=== PATIENT | female | born 1965 ===

== ENCOUNTER 2016-09-17 12:40 | Emergency (ER) | payer MEDICAID ==
[2016-09-17 12:40] VITALS: BMI 28.9
[2016-09-17 12:46] VITALS: BP 153/85; PULSE 88; RESP 20; TEMP 97.8; O2SAT 98
--- NOTE | 2016-09-17 13:03 | ED PDOC ---
HPI: Headache Time Seen by Provider: 09/17/16 12:45 Chief Complaint (Nursing): Headache Chief Complaint (Provider): Headache History Per: Patient History/Exam Limitations: no limitations Onset/Duration Of Symptoms: Days (2-3 weeks) Current Symptoms Are (Timing): Still Present Severity: Moderate Pain Scale Rating Of: 4 Quality: "Pain" Preceeding Symptoms: None Associated Symptoms: Photophobia, Other (reports seeing "floaters") Additional Complaint(s): Pt is a 51yo female with PMHx of depression, presents to the ED for evaluation of right-sided headache, reported as "coming and going" for the past 2-3 weeks. Pt reports the pain is associated with dizziness and photophobia; she additionally states she feels tired. There was an aura (floaters) that proceeded the headache. The GARCIA is only located on the right side--worse w/ bright lights. No fever. She denies taking any medications to help with he headache. Currently her headache is a "3" on a 1-10 scale (was stronger earlier ). At present, she offers no additional medical complaints. PMD: A clinic in [place] Past Medical History Reviewed: Historical Data, Nursing Documentation, Vital Signs Vital Signs: Last Vital Signs Temp 97.8 F 09/17/16 12:42 Pulse 88 09/17/16 12:42 Resp 20 09/17/16 12:42 BP 153/85 H 09/17/16 12:42 Pulse Ox 98 09/17/16 12:42 - Medical History PMH: Depression Denies: Diabetes - Surgical History Surgical History: No Surg Hx - Family History Family History: States: Hypertension - Living Arrangements Living Arrangements: With Family - Social History Current smoker - smoking cessation education provided: No Alcohol: None Drugs: Denies - Immunization History Hx Tetanus Toxoid Vaccination: No Hx Influenza Vaccination: No Hx Pneumococcal Vaccination: No - Home Medications Home Medications: Ambulatory Orders Medication Instructions Recorded Acetaminophen [Tylenol 325mg tab] 3 tab PO Q6 PRN #60 tab 09/17/16 Citalopram [celEXA] 30 mg PO DAILY 09/17/16 Ibuprofen [Motrin] 1 tab PO Q8 PRN #30 tab 09/17/16 Loratadine [Allergy] 10 mg PO DAILY 09/17/16 QUEtiapine [SEROquel] 50 mg PO HS 09/17/16 - Allergies Allergies/Adverse Reactions: Allergies Allergy/AdvReac Type Severity Reaction Status Date / Time seasonal Allergy Mild RASH Uncoded 09/17/16 12:41 Review of Systems ROS Statement: Except As Marked, All Systems Reviewed And Found Negative Constitutional: Negative for: Fever Respiratory: Negative for: Shortness of Breath Gastrointestinal: Negative for: Vomiting, Abdominal Pain Neurological: Positive for: Weakness, Headache, Dizziness, Other (photophobia) Physical Exam - Reviewed Nursing Documentation Reviewed: Yes Vital Signs Reviewed: Yes - Physical Exam Appears: Positive for: Well, Non-toxic, Uncomfortable Head Exam: Positive for: ATRAUMATIC, NORMAL INSPECTION, NORMOCEPHALIC Skin: Positive for: Normal Color Eye Exam: Positive for: Normal appearance, EOMI, PERRL, Other (+photophobia) ENT: Positive for: Normal ENT Inspection Neck: Positive for: Normal Cardiovascular/Chest: Positive for: Regular Rate, Rhythm. Negative for: Murmur Respiratory: Positive for: Normal Breath Sounds. Negative for: Respiratory Distress Gastrointestinal/Abdominal: Positive for: Normal Exam, Bowel Sounds, Soft. Negative for: Tenderness Back: Positive for: Normal Inspection Extremity: Positive for: Normal ROM Neurologic/Psych: Positive for: Alert, construction plant operator II-XII, Oriented, Other (nonfocal neuro exam). Negative for: Motor/Sensory Deficits - Laboratory Results Result Diagrams: 09/17/16 13:10 09/17/16 13:10 - ECG O2 Sat by Pulse Oximetry: 98 (RA) Pulse Ox Interpretation: Normal Medical Decision Making Medical Decision Making: Time: 1304 Initial impression: Migraine headache Initial Plan: -- CT Head w/o contrast -- CMP -- CBC -- Urinalysis -- Will follow [facility] Migraine Headache protocol -- Reassess 2:07 PM -- Patient's headache is completely gone. She feels much better. Will d/c home. Scribe Attestation: Documented by Christine Johnson acting as a scribe for Ravi Arvizu DO. Provider Attestation: All medical record entries made by the Scribe were at my direction and personally dictated by me. I have reviewed the chart and agree that the record accurately reflects my personal performance of the history, physical exam, medical decision making, and the department course for this patient. I have also personally directed, reviewed, and agree with the discharge instructions and disposition. Disposition - Clinical Impression Clinical Impression: Migraine - Patient ED Disposition Is Patient to be Admitted: No - Disposition Disposition: Routine/Home Disposition Time: 14:08 Condition: IMPROVED Additional Instructions: Ms. Kilpatrick, thank you very much for letting us take care of you today. Return to the ER if your symptoms worsen, or if any problems. Take the medication listed below as prescribed. Follow up with you clinic physician at [place] this week for a re-evaluation. Prescriptions: Acetaminophen [Tylenol 325mg tab] 3 tab PO Q6 PRN #60 tab PRN Reason: Headache Ibuprofen [Motrin] 1 tab PO Q8 PRN #30 tab PRN Reason: Headache Instructions: Migraine Headache (ED) Forms: [facility] (Vincentian) Print Language: KINYARWANDA - POA Present On Arrival: None
[2016-09-17] MEDS ORDERED: Sodium Chloride 0.9% 1,000 ML IV SCH (13:15)
[2016-09-17 13:24] LABS: RBC URINE < 1 /hpf (0-3); URINE BILIRUBIN NEGATIVE (NEGATIVE); URINE BLOOD NEGATIVE (NEGATIVE); URINE COLOR COLORLESS (YELLOW); URINE GLUCOSE (UA) NEG (Normal); URINE KETONE NEGATIVE (NEGATIVE); URINE LEUKOCYTE ESTERASE TRACE Leu/uL (Negative); URINE PROTEIN NEGATIVE (NEGATIVE); URINE UROBILINOGEN 0.2-1.0 mg/dL (0.2-1.0); WBC URINE < 1 /hpf (0-5)
[2016-09-17 13:25] LABS: BASO % 0.8 % (0.0-2.0); EOS # 0.1 K/uL (0.0-0.7); EOS % 2.9 % (0.0-4.0); HEMATOCRIT 37.3 % (34.0-47.0); LYMPH # 1.6 K/uL (1.0-4.3); LYMPH % 35.6 % (20.0-40.0); MEAN CORPUSCULAR HEMOGLOBIN 26.7 pg (27.0-31.0); MEAN CORPUSCULAR HGB CONC 32.1 g/dL (33.0-37.0); MEAN PLATELET VOLUME 9.2 fl (7.2-11.7); MONO # 0.3 K/uL (0.0-0.8); MONO % 6.7 % (0.0-10.0); NEUT # 2.5 K/uL (1.8-7.0); NRBC % 0.1 % (0.0-0.0); RED CELL DISTRIBUTION WIDTH 13.9 % (11.5-14.5); WHITE BLOOD COUNT 4.6 K/uL (4.8-10.8)
[2016-09-17 13:33] LABS: ALB/GLOB RATIO 1.5 (1.0-2.1); ALKALINE PHOSPHATASE 84 U/L (38-126); ALT/SGPT 40 U/L (9-52); AST/SGOT 29 U/L (14-36); BILIRUBIN,TOTAL 0.4 mg/dl (0.2-1.3); BLOOD UREA NITROGEN 10 mg/dl (7-17); CALCIUM 8.7 mg/dL (8.4-10.2); CARBON DIOXIDE 25 mmol/L (22-30); CHLORIDE 106 mmol/L (98-107); GFR AFRICAN-AMERICAN > 60; GLUCOSE,RANDOM 96 mg/dL (65-105); POTASSIUM 4.3 MMOL/L (3.6-5.0); SODIUM 140 mmol/l (132-148); TOTAL PROTEIN 7.2 G/DL (6.3-8.2)
--- NOTE | 2016-09-17 13:41 | CT ---
PROCEDURE: CT HEAD WITHOUT CONTRAST. HISTORY: headache COMPARISON: None available. TECHNIQUE: Axial computed tomography images were obtained through the head/brain without intravenous contrast. Radiation dose: Total exam DLP = 857.65 mGy-cm. This CT exam was performed using one or more of the following dose reduction techniques: Automated exposure control, adjustment of the mA and/or kV according to patient size, and/or use of iterative reconstruction technique. FINDINGS: HEMORRHAGE: No intracranial hemorrhage. BRAIN: No mass effect or edema. No atrophy or chronic microvascular ischemic changes.No CT evidence of acute territorial infarct. VENTRICLES: Unremarkable. No hydrocephalus. CALVARIUM: Unremarkable. PARANASAL SINUSES: Mild mucosal thickening of both maxillary sinuses. MASTOID AIR CELLS: Unremarkable as visualized. No inflammatory changes. OTHER FINDINGS: None. IMPRESSION: No CT evidence of acute intracranial hemorrhage or acute territorial infarct. Acute infarction may be CT occult within first 24 hours. If a focal deficit persists, consider followup CT or MRI for further evaluation. Mild sinus disease.
== END 2016-09-17 14:20 | disposition home or self-care (01) ==
LOC: H.ER 12:40
DX: G43.909 Migraine, unspecified, not intractable, without status migrainosus (principal); F32.9 Major depressive disorder, single episode, unspecified; R42 Dizziness and giddiness

== ENCOUNTER 2016-09-25 11:40 | Emergency (ER) | payer MEDICAID ==
[2016-09-25 11:56] VITALS: BP 146/88; PULSE 81; RESP 18; TEMP 98.2; O2SAT 100
[2016-09-25 11:57] VITALS: BMI 23.8
--- NOTE | 2016-09-25 13:30 | ED PDOC ---
Upper Extremity Pain/Injury Time Seen by Provider: 09/25/16 12:05 Chief Complaint (Nursing): Upper Extremity Problem/Injury Chief Complaint (Provider): Right Hand Injury History Per: Patient History/Exam Limitations: no limitations Onset/Duration Of Symptoms: Days (2 days ago) Current Symptoms Are (Timing): Still Present Additional Complaint(s): Nisa Kilpatrick, a 51 year old female, presents to the ED with her and daughter, complaining of a right hand injury. The patient states that 2 days ago she was attempting to close a folding chair which closed abruptly on her right hand. She states that she has been having pain in her right hand since then. The patients family members also expressed that she has been feeling depressed over the past several days. The patient does admit to feeling depressed and the root of it, is that she fights alot with her and she has been wanting to see her mother who lives [facility]. She reports that she usually takes seroquel but is not compliant and takes it infrequently. The patient states that her last dosage was yesterday. The patient reports that she wants to live for her daughters and that is her purpose in life to make sure her daughters are safe and happy. Denies HI/SI hallucinations. Past Medical History Reviewed: Historical Data, Nursing Documentation, Vital Signs Vital Signs: Last Vital Signs Temp 98.2 F 09/25/16 11:55 Pulse 81 09/25/16 11:55 Resp 18 09/25/16 11:55 BP 146/88 09/25/16 11:55 Pulse Ox 100 09/25/16 11:55 - Medical History PMH: Depression Denies: Diabetes, Hepatitis, HIV, HTN, Hyperthyroidism, Hypothyroidism, Kidney Stones, Chronic Kidney Disease, Seizures, Sexually Transmitted Disease - Family History Family History: States: Unknown Family Hx, Hypertension - Immunization History Hx Tetanus Toxoid Vaccination: No Hx Influenza Vaccination: No Hx Pneumococcal Vaccination: No - Home Medications Home Medications: Ambulatory Orders Medication Instructions Recorded Acetaminophen [Tylenol 325mg tab] 3 tab PO Q6 PRN #60 tab 09/17/16 Citalopram [celEXA] 30 mg PO DAILY 09/17/16 Ibuprofen [Motrin] 1 tab PO Q8 PRN #30 tab 09/17/16 Loratadine [Allergy] 10 mg PO DAILY 09/17/16 QUEtiapine [SEROquel] 50 mg PO HS 09/17/16 - Allergies Allergies/Adverse Reactions: Allergies Allergy/AdvReac Type Severity Reaction Status Date / Time seasonal Allergy Mild RASH Uncoded 09/25/16 11:56 Review of Systems Musculoskeletal: Positive for: Hand Pain (Right hand pain.) Psych: Positive for: Depression. Negative for: Suicidal ideation Physical Exam - Reviewed Nursing Documentation Reviewed: Yes Vital Signs Reviewed: Yes - Physical Exam Appears: Positive for: Non-toxic, No Acute Distress Head Exam: Positive for: ATRAUMATIC, NORMOCEPHALIC Skin: Positive for: Normal Color, Warm, Dry Eye Exam: Positive for: Normal appearance, EOMI, PERRL ENT: Positive for: Normal ENT Inspection Neck: Positive for: Normal, Painless ROM, Supple Cardiovascular/Chest: Positive for: Regular Rate, Rhythm, Chest Non Tender. Negative for: Tachycardia Respiratory: Positive for: Normal Breath Sounds, Accessory Muscle Use. Negative for: Wheezing, Respiratory Distress Pulses-Radial (R): 2+ (2+ in right hand.) Gastrointestinal/Abdominal: Positive for: Normal Exam, Soft. Negative for: Tenderness Back: Positive for: Normal Inspection. Negative for: L CVA Tenderness, R CVA Tenderness Extremity: Positive for: Tenderness (Mild tenderess to dorsal surface of right hand.), Capillary Refill (Capillary refills less than 2 seconds.). Negative for : Deformity (No deformities to the right hand.), Swelling (No swelling to the right hand.) Neurologic/Psych: Positive for: Alert, Oriented, Mood/Affect (Crying but easily consolable and very cooperative.), Gait - ECG O2 Sat by Pulse Oximetry: 100 (RA) Pulse Ox Interpretation: Normal - Radiology X-Ray: Interpreted by Me (Hand x-ray) X-Ray Interpretation: No Acute Disease - Progress ED Course And Treament: Hand immobilized in volar splint applied by PA. Pt. evaluated by [employer] worker, who spoke with psychiatrist who cleared pt. for discharge and arranged outpatient f/u. Medical Decision Making Medical Decision Makin:05 Initial Impression: 51 year old female presenting with right hand pain Initial Plan: * Crisis Evaluation * RAD right hand Scribe Attestation Documented by Duyen Tim acting as a scribe for Ras Rose PA-C. Scribe Attestation All medical record entries made by the Scribe were at my direction and personally dictated by me. I have reviewed the chart and agree that the record accurately reflects my personal performance of the history, physical exam, medical decision making, and the department course for this patient. I have also personally directed, reviewed, and agree with the discharge instructions and disposition. Disposition - Clinical Impression Clinical Impression: Hand contusion, Depression - Patient ED Disposition Is Patient to be Admitted: No - Disposition Referrals: [facility] [place] [Outside] Disposition: Routine/Home Disposition Time: 13:54 Condition: STABLE Additional Instructions: FOLLOW UP AT [facility] LOC[facility] AT [address] [place] [address] Instructions: Depression (ED), Contusion in Adults (ED) Print Language: MICRONESIAN
--- NOTE | 2016-09-25 15:35 | RAD ---
PROCEDURE: Right Wrist Radiographs. HISTORY: trauma COMPARISON: None. FINDINGS: BONES: Normal. No fracture. JOINTS: Normal. No dislocation. SOFT TISSUES: Normal. OTHER FINDINGS: None. IMPRESSION: Normal right wrist radiographs.
== END 2016-09-25 14:20 | disposition home or self-care (01) ==
LOC: H.ER 11:40
DX: S60.221A Contusion of right hand, initial encounter (principal); W23.0XXA Caught, crushed, jammed, or pinched between moving objects, initial encounter; Y92.89 Other specified places as the place of occurrence of the external cause; F32.9 Major depressive disorder, single episode, unspecified

== ENCOUNTER 2016-09-26 02:23 | Emergency (ER) | payer MEDICAID ==
[2016-09-26 02:52] VITALS: BP 148/92; PULSE 84; RESP 16; TEMP 98.2; O2SAT 100; BMI 32.9
--- NOTE | 2016-09-26 03:02 | ED PDOC ---
HPI: Psych/Substance Abuse Time Seen by Provider: 09/26/16 02:27 Chief Complaint (Nursing): Psychiatric Evaluation Chief Complaint (Provider): Denies complaint - Brought by EMS History Per: Patient History/Exam Limitations: no limitations Additional Complaint(s): Pt states she was at police station and brought here by EMS after filing for a restraining order from . Pt states she wants a divroce because he is cheating on her but he will not sign the papers. Past Medical History Reviewed: Historical Data, Nursing Documentation, Vital Signs Vital Signs: Last Vital Signs Temp 98.2 F 09/26/16 02:39 Pulse 84 09/26/16 02:39 Resp 16 09/26/16 02:39 BP 148/92 H 09/26/16 02:39 Pulse Ox 100 09/26/16 02:39 - Medical History PMH: Depression Denies: Diabetes, Hepatitis, HIV, HTN, Hyperthyroidism, Hypothyroidism, Kidney Stones, Chronic Kidney Disease, Seizures, Sexually Transmitted Disease - Surgical History Surgical History: No Surg Hx - Family History Family History: States: Unknown Family Hx, Hypertension - Living Arrangements Living Arrangements: With Family - Social History Current smoker - smoking cessation education provided: No Alcohol: None Drugs: Denies - Immunization History Hx Tetanus Toxoid Vaccination: No Hx Influenza Vaccination: No Hx Pneumococcal Vaccination: No - Home Medications Home Medications: Ambulatory Orders Medication Instructions Recorded Acetaminophen [Tylenol 325mg tab] 3 tab PO Q6 PRN #60 tab 09/17/16 Citalopram [celEXA] 30 mg PO DAILY 09/17/16 Ibuprofen [Motrin] 1 tab PO Q8 PRN #30 tab 09/17/16 Loratadine [Allergy] 10 mg PO DAILY 09/17/16 QUEtiapine [SEROquel] 50 mg PO HS 09/17/16 - Allergies Allergies/Adverse Reactions: Allergies Allergy/AdvReac Type Severity Reaction Status Date / Time seasonal Allergy Mild RASH Uncoded 09/26/16 02:37 Review of Systems ROS Statement: Except As Marked, All Systems Reviewed And Found Negative Physical Exam - Reviewed Nursing Documentation Reviewed: Yes Vital Signs Reviewed: Yes - Physical Exam Appears: Positive for: Well, Non-toxic, No Acute Distress Head Exam: Positive for: ATRAUMATIC, NORMAL INSPECTION, NORMOCEPHALIC Skin: Positive for: Normal Color, Warm, DRY Eye Exam: Positive for: Normal appearance ENT: Positive for: Normal ENT Inspection Neck: Positive for: Normal, Painless ROM Cardiovascular/Chest: Positive for: Regular Rate, Rhythm Respiratory: Positive for: CNT, Normal Breath Sounds Back: Positive for: Normal Inspection Extremity: Positive for: Normal ROM Neurologic/Psych: Positive for: Alert, Oriented - ECG O2 Sat by Pulse Oximetry: 100 Pulse Ox Interpretation: Normal Medical Decision Making Medical Decision Making: crisis evaluation completed. Disposition - Clinical Impression Clinical Impression: Depression - Patient ED Disposition Is Patient to be Admitted: No - Disposition Referrals: Bonnie Godinez MD [Primary Care Provider] - Disposition: Routine/Home Disposition Time: 03:00 Condition: GOOD Instructions: Depression (ED)
== END 2016-09-26 03:15 | disposition home or self-care (01) ==
LOC: H.ER 02:23
DX: F33.9 Major depressive disorder, recurrent, unspecified (principal)

== ENCOUNTER 2016-09-27 06:39 | Observation (INO) | payer MEDICAID ==
[2016-09-27 06:40] VITALS: BMI 32.9
[2016-09-27 08:16] LABS: BASO % 0.7 % (0.0-2.0); EOS # 0.2 K/uL (0.0-0.7); EOS % 3.3 % (0.0-4.0); HEMATOCRIT 40.1 % (34.0-47.0); LYMPH # 2.8 K/uL (1.0-4.3); LYMPH % 40.9 % (20.0-40.0); MEAN CELL VOLUME 82.2 fl (81.0-99.0); MEAN CORPUSCULAR HEMOGLOBIN 27.6 pg (27.0-31.0); MEAN CORPUSCULAR HGB CONC 33.6 g/dL (33.0-37.0); MEAN PLATELET VOLUME 8.7 fl (7.2-11.7); MONO # 0.5 K/uL (0.0-0.8); MONO % 7.9 % (0.0-10.0); NEUT # 3.2 K/uL (1.8-7.0); NEUT % 47.2 % (50.0-75.0); NRBC % 0.3 % (0.0-0.0); WHITE BLOOD COUNT 6.9 K/uL (4.8-10.8)
--- NOTE | 2016-09-27 08:22 | PCM.RRTMUL ---
MEMBER[employer]IP [employer]IC[employer] Nurse Assessment - Vital Signs Blood Pressure:: 110/85 Pulse Rate:: 75 Respiratory Rate:: 16 Temperature:: 98.7 F I.Reason for [employer]BERSHIP [employer]ICITOR - A) Acute Change in Patient: Subjective: MEMBERSHIP SOLICITOR called for whole body contractions - B) Neurological Status (Select all that apply): Responsive (to painful stimuli) - C) Respiratory Oxygen Delivery Method: Non Rebreather @% (15L) - Head Head Exam: ATRAUMATIC - Neurological Exam Neurological Exam: Awake Additional exam: responsive to painful stimuli Plan - B. Assessment of Findings&Treatment Plan 51 yr old F with PMHx of depression, MEMBERSHIP SOLICITOR called in CT department for whole body contractions which lasted a few seconds, vital signs were stable, no seizure like activity, patient responsive to painful stimuli, no medications given during [employer]SHIP [employer]IC[employer], pt stable on supplemental O2 15L via nonrebreather mask, transferred back to ER for further evaluation.
--- NOTE | 2016-09-27 08:24 | CT ---
PROCEDURE: CT HEAD WITHOUT CONTRAST. HISTORY: code stroke COMPARISON: 09/17/2016 TECHNIQUE: Axial computed tomography images were obtained through the head/brain without intravenous contrast. Radiation dose: Total exam DLP = 1245.89 mGy-cm. This CT exam was performed using one or more of the following dose reduction techniques: Automated exposure control, adjustment of the mA and/or kV according to patient size, and/or use of iterative reconstruction technique. FINDINGS: HEMORRHAGE: None BRAIN: John-white matter differentiation is preserved. There is no mass, mass effect or abnormal extra-axial fluid collection. VENTRICLES: The ventricles are normal in size, shape and configuration. CALVARIUM: There is no calvarial fracture or extracranial soft tissue swelling. PARANASAL SINUSES: Predominantly clear. MASTOID AIR CELLS: Predominantly clear. OTHER FINDINGS: None. IMPRESSION: No acute intracranial abnormality. If there is a persistent focal neurologic deficit and an ongoing clinical concern for acute infarction, an MRI of the brain without intravenous contrast would be a more sensitive modality for evaluation of hyperacute/acute ischemic infarction. Findings discussed with Dr Hanny Dsouza in the ER on 09/27/2016 at 8:20 a.m.
--- NOTE | 2016-09-27 08:25 | ED PDOC ---
HPI:STROKE - Historian Historian: Family (daughter) - Chief Complaint Chief Complaint: Weakness, Numbness - Onset Date: 09/27/16 Onset: This morning - Notes: Notes:: Nisa Kilpatrick is a 51 year old female, with a previous medical history of depression and migraines, who presents to the ED accompanied by her daughter with complaints of right sided weakness and numbness this morning when she woke up. Daughter reports patient was last seen at baseline before going to sleep last night at 24:00. Patient denies any alcohol ingestion and reports to taking 4 ibuprofen and her antidepressants. Daughter reports patient has been frequently crying for the past couple of weeks from hearing bad news. PMD: none provided NIHSS Stroke Scale - Date/Time Evaluation Performed Date Performed: 09/27/16 Time Performed: 07:45 When Was NIHSS Performed: Code Stroke - How Severe is the Stroke Level of Consciousness: 1=Drowsy LOC to Questions: 0=Both comments correct LOC to commands: 0=Obeys both correctly Best Gaze: 0=Normal Visual: 0=No visual loss Facial: 0=Normal Motor Arm - Left: 2=Falls before 10 sec Motor Arm - Right: 2=Falls before 10 sec Motor Leg - Left: 2=Falls before 5 sec Motor Leg - Right: 3=No effort against gravity (falls immediately) Limb Ataxia: 0=Absent Sensory: 0=Normal Best Language: 0=No aphasia Dysarthia: 0=Normal articulation Extinction & Inattention (Neglect): 0=Normal, no object Score: 10 NIHSS Stroke Scale 2 - Date/Time Evaluation Performed Date Performed: 09/27/16 Time Performed: 08:40 When Was NIHSS Performed: Re-evaluation - How Severe is the Stroke Level of Consciousness: 0=Alert LOC to Questions: 0=Both comments correct LOC to commands: 0=Obeys both correctly Best Gaze: 0=Normal Visual: 0=No visual loss Facial: 0=Normal Motor Arm - Left: 0=No drift Motor Arm - Right: 0=No drift Motor Leg - Left: 0=No drift Motor Leg - Right: 0=No drift Limb Ataxia: 0=Absent Sensory: 0=Normal Best Language: 0=No aphasia Dysarthia: 0=Normal articulation Extinction & Inattention (Neglect): 0=Normal, no object Score: 0 Past Medical History Reviewed: Historical Data, Nursing Documentation, Vital Signs Vital Signs: Last Vital Signs Temp 98.7 F 09/27/16 06:45 Pulse 75 09/27/16 06:45 Resp 16 09/27/16 06:45 BP 110/85 09/27/16 06:45 Pulse Ox 100 09/27/16 06:45 - Medical History PMH: Depression, Migraine Denies: Diabetes, Hepatitis, HIV, HTN, Hyperthyroidism, Hypothyroidism, Kidney Stones, Chronic Kidney Disease, Seizures, Sexually Transmitted Disease - Family History Family History: States: Unknown Family Hx, Hypertension - Immunization History Hx Tetanus Toxoid Vaccination: No Hx Influenza Vaccination: No Hx Pneumococcal Vaccination: No - Home Medications Home Medications: Ambulatory Orders Medication Instructions Recorded Acetaminophen [Tylenol 325mg tab] 3 tab PO Q6 PRN #60 tab 09/17/16 Citalopram [celEXA] 30 mg PO DAILY 09/17/16 Ibuprofen [Motrin] 1 tab PO Q8 PRN #30 tab 09/17/16 Loratadine [Allergy] 10 mg PO DAILY 09/17/16 QUEtiapine [SEROquel] 50 mg PO HS 09/17/16 - Allergies Allergies/Adverse Reactions: Allergies Allergy/AdvReac Type Severity Reaction Status Date / Time seasonal Allergy Mild RASH Uncoded 09/26/16 02:37 Review of Systems ROS Statement: Except As Marked, All Systems Reviewed And Found Negative Neurological: Positive for: Weakness, Numbness Physical Exam - Reviewed Nursing Documentation Reviewed: Yes Vital Signs Reviewed: Yes - Laboratory Results Result Diagrams: 09/27/16 08:05 09/27/16 08:05 - ECG O2 Sat by Pulse Oximetry: 100 (RA) Pulse Ox Interpretation: Normal - Progress ED Course And Treament: 07:44 Code stroke called 07:50 Rapid Response Team called into CT room for whole body contraction. No seizure activity noted, patient responsive to painful stimuli. Patient observed and vital signs stable. 08:20 Radiology called for reading. 08:40 Upon Reevaluation patient appears alert, oriented x 3 and able to move all extremities. Patient denies any suicidal or homicidal ideations. 09:[address] Chavarria who is diagnosing the patient with transient global amnesia. 09:[address] Dawson, patient will be placed in Obs tele. - Critical Care Total Time (In Min): 30 Medical Decision Making Medical Decision Making: Initial Plan: * blood type and screen * CT head w/o contrast * EKG * labs * acetaminophen * alcohol serum * urine drug sceen * HCG qualitative * hemoglobin A1C * Troponin I * partial thromboplastin time * prothrombin time * CXR * salicylate * radiation monitor cont * accu-check * nursing swallow screen * vital signs Q15 min * reevaluation 08:21 CT Head w/o contrast FINDINGS: HEMORRHAGE: None BRAIN: John-white matter differentiation is preserved. There is no mass, mass effect or abnormal extra-axial fluid collection. VENTRICLES: The ventricles are normal in size, shape and configuration. CALVARIUM: There is no calvarial fracture or extracranial soft tissue swelling. PARANASAL SINUSES: Predominantly clear. MASTOID AIR CELLS: Predominantly clear. OTHER FINDINGS: None. IMPRESSION: No acute intracranial abnormality. If there is a persistent focal neurologic deficit and an ongoing clinical concern for acute infarction, an MRI of the brain without intravenous contrast would be a more sensitive modality for evaluation of hyperacute/acute ischemic infarction. Findings discussed with Dr Hanny Dsouza in the ER on 09/27/2016 at 8:20 a.m. Scribe Attestation: Documented by Hanny Dawkins, acting as a scribe for Hanny Dsouza MD. Provider Scribe Attestation: All medical record entries made by the Scribe were at my direction and personally dictated by me. I have reviewed the chart and agree that the record accurately reflects my personal performance of the history, physical exam, medical decision making, and the department course for this patient. I have also personally directed, reviewed, and agree with the discharge instructions and disposition.
[2016-09-27 08:34] LABS: ALB/GLOB RATIO 1.4 (1.0-2.1); ALCOHOL SERUM < 10 mg/dl (0-10); ALKALINE PHOSPHATASE 85 U/L (38-126); ALT/SGPT 40 U/L (9-52); AST/SGOT 29 U/L (14-36); BILIRUBIN,TOTAL 0.6 mg/dl (0.2-1.3); BLOOD UREA NITROGEN 11 mg/dl (7-17); CALCIUM 8.9 mg/dL (8.4-10.2); CARBON DIOXIDE 23 mmol/L (22-30); CHLORIDE 105 mmol/L (98-107); CHOLESTEROL 213 mg/dL (0-199); GFR AFRICAN-AMERICAN > 60; GLUCOSE,RANDOM 95 mg/dL (65-105); POTASSIUM 3.6 MMOL/L (3.6-5.0); SODIUM 141 mmol/l (132-148)
--- NOTE | 2016-09-27 11:26 | RAD ---
HISTORY: CVA COMPARISON: Comparison is made to 02/04/2016 FINDINGS: LUNGS: No evidence of new infiltrate or consolidation in the lungs. Stable 7 millimeter nodule at the left lower lung. PLEURA: No significant pleural effusion identified, no pneumothorax apparent. CARDIOVASCULAR: Normal. OSSEOUS STRUCTURES: No significant abnormalities. VISUALIZED UPPER ABDOMEN: Normal. OTHER FINDINGS: None. IMPRESSION: No evidence of acute pulmonary disease or significant interval change since the previous exam.
--- NOTE | 2016-09-27 12:43 | PCM.RRTMUL ---
BLOCK ENGRAVER Nurse Assessment - Situation Room Number:: 404-1 BLOCK ENGRAVER Reason for Call: Possible Stroke BLOCK ENGRAVER Called By: RN I.Reason for BLOCK ENGRAVER - A) Acute Change in Patient: (Select all that apply): Staff member or family is worried about patient - A) Initial Vital Signs: Blood Pressure: 167/100 Pulse Rate: 87 Respiratory Rate: 20 Temperature: 98.7 F - B) Neurological Status (Select all that apply): Alert, Responsive, Oriented, Verbal, Follows Commands Other (Please specify): Tearful/crying - C) Respiratory Oxygen Delivery Method: Room Air - Constitutional Appears: Non-toxic, Other (tearful) - Head Head Exam: ATRAUMATIC, NORMAL INSPECTION, NORMOCEPHALIC - Eyes Eye Exam: Normal appearance - Respiratory Exam Respiratory Exam: Clear to Ausculation Bilateral, NORMAL BREATHING PATTERN - Cardiovascular Exam Cardiovascular Exam: REGULAR RHYTHM, RRR, +S1, +S2 - GI/Abdominal Exam GI & Abdominal Exam: Soft, Normal Bowel Sounds. absent: Tenderness - Neurological Exam Neurological Exam: Alert, Awake, Motor Sensory Deficit - Extremities Exam Extremities Exam: Normal Inspection. absent: Calf Tenderness, Pedal Edema Plan - B. Assessment of Findings&Treatment Plan BLOCK ENGRAVER called for possible stroke S: 51 year old female with PMHx of depression (exacerbated by recent divorce), migraines admitted to hospital this AM due to right sided weakness/numbness/ tingling. Patient was CODE STROKE this morning, CT head negative for acute changes, ASA 325mg given, patient had "body contractions" during CT of head, BLOCK ENGRAVER was called at that time as well. Patient was transferred to [facility], in stable condition with resolvement of neuro symptoms. Approx 1 hour of being transferred to , patient began with left sided weakness/numbness/tingling throughout face, upper and lower extremities. Patient also complains of chest pressure. Patient is very tearful and emotionally labile. O: As above, BP elevated A/P: 51 year old female with PMHx of depression (exacerbated by recent divorce) , migraines admitted to tele-obs due to stroke-like symptoms this AM which had resolved and were on contralateral side of current symptoms. -CODE STROKE called -EKG -MRI Brain STAT -ASA given in ED -Troponin q8h x 2 -Admitting Attending and Neurologist notified and aware NIHSS Stroke Scale - Date/Time Evaluation Performed Date Performed: 09/27/16 Time Performed: 12:00 When Was NIHSS Performed: Code Stroke - How Severe is the Stroke Level of Consciousness: 0=Alert LOC to Questions: 0=Both comments correct LOC to commands: 0=Obeys both correctly Best Gaze: 0=Normal Visual: 0=No visual loss Facial: 1=Minor asymmetry Motor Arm - Left: 0=No drift Motor Arm - Right: 0=No drift Motor Leg - Left: 3=No effort against gravity (falls immediately) Motor Leg - Right: 0=No drift Limb Ataxia: 0=Absent Sensory: 1=Mild to moderate loss Best Language: 0=No aphasia Dysarthia: 0=Normal articulation Extinction & Inattention (Neglect): 0=Normal, no object Score: 5
--- NOTE | 2016-09-27 12:57 | MRI ---
PROCEDURE: MRI of the brain without contrast HISTORY: left facial droop, left sided weakness COMPARISON: Comparison is made to the previous CT of the head dated 09/27/2016 TECHNIQUE: Axial diffusion, axial FLAIR T2 and axial GRE images of the brain were obtained. FINDINGS: No evidence of acute or subacute infarct. No evidence of diffusion restriction in the brain. No evidence of mass lesion mass effect or midline shift. The ventricles and sulci are normal in size and shape for the patient's age. No evidence of intracranial collection. The visualized portion of the sinuses and mastoid and orbits are grossly unremarkable. IMPRESSION: No evidence of acute or subacute infarct.
--- NOTE | 2016-09-27 13:39 | CARD ---
APPROVED REPORT EKG Measurement Heart [id number] <Conclusion> Normal sinus rhythm Normal ECG
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
--- NOTE | 2016-09-27 15:48 | CON ---
DATE: 09/27/2016 CHIEF COMPLAINT: Transient memory loss as well as right-sided weakness and numbness. HISTORY OF PRESENT ILLNESS: This is a 51-year-old woman with past medical history of depression and previous suicide attempt, who came to the hospital for right-sided weakness and was concerned. She w as going through a divorce with her and currently has a restraining order and a court date se t. The daughters are present. She denied any suicidal attempt, but has been flat affect and very an xious. Her transient paresthesias as weakness is likely secondary to her underlying anxiety and acut e depression. 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 No bowel or bladder incontinence. Her MRI of the brain was unremarkable. Psychiatry has se en the patient and recommend and said that she has major depression recur moderate and adjustment dis order with anxiety and recommended starting her on Seroquel 75 mg at bedtime, Celexa 30 mg daily and Ativan 0.5 mg p.r.n. for anxiety. Currently, she is eating her food without any difficulties. I hav e placed her on gabapentin 300 mg p.o. at bedtime for neuropathic relief as will help her anxiety. C urrently, no focal neurological deficits at this time. PAST MEDICAL HISTORY: Depression. SOCIAL HISTORY: No illicit drug use, smoking, or EtOH abuse. ALLERGIES: Seasonal. FAMILY HISTORY: Noncontributory. REVIEW OF SYSTEMS: A 14-point review of systems is negative except for the HPI. MEDICATIONS: Reviewed via nurse's reconciliation sheet. PHYSICAL EXAMINATION: VITAL SIGNS: Temperature 97.7, pulse rate is 67, blood pressure 117/83, respiratory rate 18, oxygen saturation 100% via room air. GENERAL: The patient is sitting up in bed in no acute distress. HEENT: Atraumatic, normocephalic. PERRLA. Extraocular muscles are intact. NECK: Supple, no JVD, no adenopathy noted. LUNGS: Clear to auscultation. No adventitious sounds. HEART: S1, S2, normal rate and rhythm. No murmurs, rubs, or gallops. ABDOMEN: Soft, nontender, nondistended. Bowel sounds are present. EXTREMITIES: No clubbing, no cyanosis. Peripheral pulses 2+ felt bilaterally. NEUROLOGIC: The patient is alert, oriented to person, place, month and year. Speech is fluent, with out any errors. Cranial nerves II-XII are intact. MOTOR: Moves all extremities equally. No pronator drift seen. SENSORY: Light touch, pinprick, proprioception and vibration intact. DTRs are 2+ throughout. COORDINATION: [id number] intact. GAIT: Deferred for now. She is anxious and as well as depressed affect. LABORATORY DATA: Sodium is 141, potassium 3.6, chloride 105, carbon dioxide 23, BUN of 11, creatinin e 0.7, random glucose 95. ASSESSMENT AND PLAN: My impression is that this is likely an acute depressive state moderate along w ith superimposed underlying anxiety, adjustment disorder and I agree with psychiatry's recommendation s to continue to place her on Celexa as well as Seroquel. Seroquel dosage of 50 mg p.o. at bedtime a nd Celexa 30 mg p.o. daily. In addition, will keep her on gabapentin 300 mg p.o. at bedtime, will up her paresthesias as well as anxiety. I recommended her to be on aspirin 81 mg daily as well as Lipi tor 40 mg daily for stroke prevention. MRI of the brain showed no acute intracranial abnormality. S he is clinically stable from my standpoint. Can further defer her clearance from psychiatry. Kojo chu sign off. Evelio Chavarria MD cc: [phone] TT: 09/27/2016 15:47:23 Confirmation # [id number] Dictation # [id number] kwesi
[2016-09-28 06:47] LABS: BASO % 0.6 % (0.0-2.0); EOS # 0.2 K/uL (0.0-0.7); EOS % 3.9 % (0.0-4.0); HEMATOCRIT 38.3 % (34.0-47.0); LYMPH # 2.2 K/uL (1.0-4.3); LYMPH % 42.6 % (20.0-40.0); MEAN CORPUSCULAR HEMOGLOBIN 26.8 pg (27.0-31.0); MEAN CORPUSCULAR HGB CONC 32.3 g/dL (33.0-37.0); MEAN PLATELET VOLUME 8.9 fl (7.2-11.7); MONO # 0.3 K/uL (0.0-0.8); MONO % 6.1 % (0.0-10.0); NEUT # 2.4 K/uL (1.8-7.0); NEUT % 46.8 % (50.0-75.0); NRBC % 0.1 % (0.0-0.0); RED CELL DISTRIBUTION WIDTH 13.9 % (11.5-14.5); WHITE BLOOD COUNT 5.1 K/uL (4.8-10.8)
[2016-09-28 07:17] LABS: ALB/GLOB RATIO 1.4 (1.0-2.1); ALKALINE PHOSPHATASE 65 U/L (38-126); ALT/SGPT 32 U/L (9-52); AST/SGOT 26 U/L (14-36); BILIRUBIN,TOTAL 0.5 mg/dl (0.2-1.3); BLOOD UREA NITROGEN 15 mg/dl (7-17); CALCIUM 8.3 mg/dL (8.4-10.2); CARBON DIOXIDE 24 mmol/L (22-30); CHLORIDE 106 mmol/L (98-107); GFR AFRICAN-AMERICAN > 60; GLUCOSE,RANDOM 89 mg/dL (65-105); POTASSIUM 3.8 MMOL/L (3.6-5.0); SODIUM 139 mmol/l (132-148); TOTAL PROTEIN 6.7 G/DL (6.3-8.2)
[2016-09-28 07:45] LABS: THYROID STIMULATING HORMONE 1.17 mIU/ML (0.46-4.68)
--- NOTE | 2016-09-28 12:33 | CP.PCM.HP ---
History of Present Illness - History of Present Illness History of Present Illness: 51 year old female with PMHx of depression (exacerbated by recent divorce), migraines admitted to hospital due to right sided weakness/numbness/tingling. Patient was code stroke in ED, CT head negative for acute changes, ASA 325mg given, patient had "body contractions" during CT of head, SUPERINTENDENT FACTORY was called at that time as well, patient was responsive to painful stimuli (sternal rub). Patient was transferred to telemetry, in stable condition with resolvement of neuro symptoms. Patient was very tearful and emotionally labile. Approx 1 hour of being transferred to , patient began with left sided weakness/numbness/ tingling throughout face, upper and lower extremities. Patient also complained of chest pressure. Code stroke called again, patient had MRI stat completed, which was also negative for acute changes. Patient was seen and evaluated this am with attending. Patient states she feels okay though continues to complain of chest pain/tenderness/swelling of sternum. No sob, palpitations, chest pressure, back pain, headache, palpitations. Neuro/Psych evaluated patient. Present on Admission - Present on Admission Any Indicators Present on Admission: No Review of Systems - Review of Systems All systems: reviewed and no additional remarkable complaints except (mentioned in HPI) Past Patient History - Past Medical History & Family History Past Medical History?: Yes - Past Social History Smoking Status: Never Smoked - CARDIAC Hx Hypertension: No - PULMONARY Hx Tuberculosis: No - NEUROLOGICAL Hx Neurological Disorder: Yes - HEENT Hx HEENT Problems: No - RENAL Hx Chronic Kidney Disease: No - ENDOCRINE/METABOLIC Hx Hyperthyroidism: No Hx Hypothyroidism: No - HEMATOLOGICAL/ONCOLOGICAL Hx Human Immunodeficiency Virus (HIV): No - INTEGUMENTARY Hx Dermatological Problems: No - MUSCULOSKELETAL/RHEUMATOLOGICAL Hx Musculoskeletal Disorders: No Hx Falls: No - GASTROINTESTINAL Hx Gastrointestinal Disorders: No - GENITOURINARY/GYNECOLOGICAL Hx Sexually Transmitted Disorders: No - PSYCHIATRIC Hx Psychophysiologic Disorder: Yes - SURGICAL HISTORY Hx Surgeries: No - ANESTHESIA Hx Anesthesia: No Meds Home Medications: Home Medication List Medication Instructions Recorded Confirmed Type Atorvastatin [Lipitor] 40 mg PO DAILY #14 tab 09/28/16 Rx Gabapentin [Neurontin] 300 mg PO HS #30 cap 09/28/16 Rx Allergies/Adverse Reactions: Allergies Allergy/AdvReac Type Severity Reaction Status Date / Time seasonal Allergy Mild RASH Uncoded 09/26/16 02:37 Physical Exam - Constitutional Appears: Well, Non-toxic, No Acute Distress - Head Exam Head Exam: ATRAUMATIC, NORMAL INSPECTION, NORMOCEPHALIC - Eye Exam Eye Exam: Normal appearance - Neck Exam Neck exam: Positive for: Normal Inspection - Respiratory Exam Respiratory Exam: Clear to Auscultation Bilateral, NORMAL BREATHING PATTERN - Cardiovascular Exam Cardiovascular Exam: REGULAR RHYTHM, RRR, +S1, +S2 Additional comments: chest tenderness to palpation/touch with minimal swelling and no bruising of sternum - GI/Abdominal Exam GI & Abdominal Exam: Normal Bowel Sounds, Soft. absent: Tenderness - Extremities Exam Extremities exam: Positive for: normal inspection - Back Exam Back exam: NORMAL INSPECTION - Neurological Exam Neurological exam: Alert, CN II-XII Intact, Oriented x3 - Psychiatric Exam Psychiatric exam: Normal Affect, Normal Mood - Skin Skin Exam: Dry, Intact, Normal Color, Warm Results - Vital Signs Recent Vital Signs: Last Vital Signs Temp 97.9 F 09/28/16 08:00 Pulse 69 09/28/16 09:00 Resp 18 09/28/16 08:00 BP 121/86 09/28/16 08:00 Pulse Ox 100 09/28/16 08:00 - Labs Result Diagrams: 09/28/16 05:45 09/28/16 05:45 Labs: Laboratory Results - last 24 hr 09/27/16 09/27/16 09/28/16 15:43 21:18 05:45 WBC 5.1 RBC 4.61 Hgb 12.4 Hct 38.3 MCV 83.0 MCH 26.8 L MCHC 32.3 L RDW 13.9 Plt Count 236 MPV 8.9 Neut % (Auto) 46.8 L Lymph % (Auto) 42.6 H [place] % (Auto) 6.1 Eos % (Auto) 3.9 Baso % (Auto) 0.6 Neut # 2.4 Lymph # 2.2 [place] # 0.3 Eos # 0.2 Baso # 0.0 Sodium Potassium Chloride Carbon Dioxide Anion Gap BUN Creatinine Est GFR ( Amer) Est GFR (Non-Af Amer) Random Glucose Calcium Total Bilirubin AST ALT Alkaline Phosphatase Troponin I < 0.0120 < 0.0120 Total Protein Albumin Globulin Albumin/Globulin Ratio TSH 3rd Generation 09/28/16 05:45 WBC RBC Hgb Hct MCV MCH MCHC RDW Plt Count MPV Neut % (Auto) Lymph % (Auto) [place] % (Auto) Eos % (Auto) Baso % (Auto) Neut # Lymph # [place] # Eos # Baso # Sodium 139 Potassium 3.8 Chloride 106 Carbon Dioxide 24 Anion Gap 13 BUN 15 Creatinine 0.7 Est GFR ( Amer) > 60 Est GFR (Non-Af Amer) > 60 Random Glucose 89 Calcium 8.3 L Total Bilirubin 0.5 AST 26 ALT 32 Alkaline Phosphatase 65 Troponin I Total Protein 6.7 Albumin 3.8 Globulin 2.8 Albumin/Globulin Ratio 1.4 TSH 3rd Generation 1.17 Assessment & Plan (1) Paresthesia Assessment and Plan: Resolved Yesterday with contralateral findings during each episode Neuro evaluated, appreciate recommendations c/w Gabapentin Reviewed CT head and MRI of brain - unremarkable Status: Acute (2) Anxiety Assessment and Plan: Psych evaluated appreciate recommendations Appears stable at this time Status: Acute (3) Depression Assessment and Plan: Psych evaluated appreciate recommendations Appears stable at this time Status: Acute (4) Pain of sternum Assessment and Plan: Trop x 3 negative Not chest presssure or SOB related EKG reviewed no telemetry events noted likely 2ndary to sternal rub CXR ordered Status: Acute
--- NOTE | 2016-09-28 12:53 | RAD ---
HISTORY: sternal pain/swelling COMPARISON: Chest x-ray performed 09/27/16 TECHNIQUE: Chest PA and lateral FINDINGS: LUNGS: No focal consolidation. Scattered probable calcified granulomas. Please note that chest x-ray has limited sensitivity for the detection of pulmonary masses. PLEURA: No significant pleural effusion identified. No definite pneumothorax . CARDIOVASCULAR: The cardiomediastinal silhouette appears within normal limits of size. OSSEOUS STRUCTURES: Degenerative changes. Question possibility of sclerotic focus involving lower thoracic spine versus superimposed granuloma. VISUALIZED UPPER ABDOMEN: Unremarkable. OTHER FINDINGS: None. IMPRESSION: No focal consolidation, significant pleural effusion, or definite pneumothorax identified.
--- NOTE | 2016-09-28 15:19 | CT ---
CT chest without IV contrast Indication: Sternal pain/swelling Technique: Contiguous axial images were obtained through the chest without intravenous contrast enhancement. Sagittal and coronal reconstructions were generated and reviewed. This CT exam was performed using 1 or more of the falling dose reduction techniques: Automated exposure control, adjustment of the MAA and/or kV according to patient size, and/or use of iterative reconstruction technique. Radiation dose (DLP): 601.92 MGy-cm. Comparison: Chest x-ray performed 09/28/16 Findings: Visualized portions of the inferior thyroid gland appear unremarkable. The unenhanced mediastinal and hilar vascular structures appear grossly unremarkable. The heart appears within normal limits of size. Probable small calcified left hilar lymph nodes. Minimal atelectasis at the lingula. No focal consolidation. No pleural effusion. No pneumothorax. Numerous scattered calcified granulomas measuring up to 8 mm in the left lower lobe. No suspicious pulmonary nodules measuring greater than 5 mm. No subcutaneous fluid collections or soft tissue mass is identified, particularly in the region of the sternum. Limited visualization of the noncontrast upper abdomen appears grossly unremarkable. L1 6 mm sclerotic focus, possibly bone island. Impression: Evidence of prior granulomatous infection. Minimal atelectasis, lingula. Additional incidental findings as above.
--- NOTE | 2016-09-28 15:31 | CARD ---
APPROVED REPORT EKG Measurement Heart [id number] <Conclusion> Normal sinus rhythm Normal ECG
[2016-09-28 15:43] VITALS: BP 122/80; PULSE 94; RESP 20; TEMP 98.6; O2SAT 98
== END 2016-09-28 15:45 | disposition home or self-care (01) ==
LOC: H.ER 06:39 → H.ERHOLD 09:32 → H.TEL 10:53
PROVIDERS: ADMIT Internal Medicine; ATTEND Internal Medicine
DX: R20.9 Unspecified disturbances of skin sensation (principal); F33.1 Major depressive disorder, recurrent, moderate; F43.22 Adjustment disorder with anxiety; R07.89 Other chest pain; G43.909 Migraine, unspecified, not intractable, without status migrainosus

== ENCOUNTER 2016-10-05 11:22 | Inpatient (IN) | payer MEDICAID ==
[2016-10-05 11:23] VITALS: BMI 32.9
--- NOTE | 2016-10-05 13:28 | ED PDOC ---
HPI: Psych/Substance Abuse Time Seen by Provider: 10/05/16 11:35 Chief Complaint (Nursing): Psychiatric Evaluation History Per: Patient Additional Complaint(s): Pt. states today police picked her up from her house but is uncertain why. Pt. is speculating that it is because of her with whom she is with. States that her is refusing to get a divorce from her. Denies SI, HI, hallucinations. As per EMS pt. was found walking around her neighborhood barefooted and talking to herself. Pt. admitted to them that she has not been taking her psych medicaitons. Past Medical History Reviewed: Historical Data, Nursing Documentation, Vital Signs Vital Signs: Last Vital Signs Temp 98.3 F 10/05/16 11:23 Pulse 91 H 10/05/16 11:23 Resp 16 10/05/16 11:23 BP 150/107 H 10/05/16 11:23 Pulse Ox 100 10/05/16 11:23 - Medical History PMH: Depression, Migraine Denies: Diabetes, Hepatitis, HIV, HTN, Hyperthyroidism, Hypothyroidism, Kidney Stones, Chronic Kidney Disease, Seizures, Sexually Transmitted Disease - Family History Family History: States: Unknown Family Hx, Hypertension - Immunization History Hx Tetanus Toxoid Vaccination: No Hx Influenza Vaccination: No Hx Pneumococcal Vaccination: No - Home Medications Home Medications: Ambulatory Orders Medication Instructions Recorded Ibuprofen [Motrin Tab] 1 tab PO Q8 PRN #30 tab 09/17/16 QUEtiapine [SEROquel] 75 mg PO HS 09/17/16 Atorvastatin [Lipitor] 40 mg PO DAILY #14 tab 09/28/16 Gabapentin [Neurontin] 300 mg PO HS #30 cap 09/28/16 Aspirin [Ecotrin] 325 mg PO DAILY 10/05/16 Citalopram Hydrobromide [Celexa] 10 mg PO DAILY 10/05/16 Cyanocobalamin [Vitamin B12 1000 1 tab PO DAILY 10/05/16 mcg Tab] Glucosa Linder 2Kcl/Chondroitin Linder 1 cap PO DAILY 10/05/16 [Glucosamine & Chondroitin Cap] [place]-3 Fatty Acids [[place]-3] 1,000 mg PO DAILY 10/05/16 Turmeric Root Extract [Turmeric] 500 mg PO DAILY 10/05/16 - Allergies Allergies/Adverse Reactions: Allergies Allergy/AdvReac Type Severity Reaction Status Date / Time seasonal Allergy Mild RASH Uncoded 09/26/16 02:37 Review of Systems ROS Statement: Except As Marked, All Systems Reviewed And Found Negative Physical Exam - Reviewed Nursing Documentation Reviewed: Yes Vital Signs Reviewed: Yes - Physical Exam Appears: Positive for: Well, Non-toxic, No Acute Distress Head Exam: Positive for: ATRAUMATIC, NORMAL INSPECTION, NORMOCEPHALIC Skin: Positive for: Normal Color, Warm. Negative for: Rash Eye Exam: Positive for: EOMI, Normal appearance, PERRL ENT: Positive for: Normal ENT Inspection Neck: Positive for: Normal, Painless ROM Cardiovascular/Chest: Positive for: Regular Rate, Rhythm Respiratory: Positive for: CNT, Normal Breath Sounds Gastrointestinal/Abdominal: Positive for: Normal Exam, Bowel Sounds, Soft. Negative for: Tenderness Back: Positive for: Normal Inspection Extremity: Positive for: Normal ROM Neurologic/Psych: Positive for: Alert, Oriented, Mood/Affect (pt. goes off on tangents but is easily directable; calm and cooperative) - Laboratory Results Result Diagrams: 10/05/16 13:30 10/05/16 13:30 - ECG ECG: Positive for: Interpreted By Me ECG Rhythm: Positive for: Sinus Rhythm. Negative for: ST/T Changes Rate: 81 O2 Sat by Pulse Oximetry: 100 - Radiology X-Ray: Interpreted by Me (CXR) X-Ray Interpretation: No Acute Disease - Progress ED Course And Treament: Labs ordered. Pt. placed on 1:1. 1420 Pt. began c/o mid-sternal chest pain which lasted for < 1 minute. Pt. states she's been getting chest pain intermittently for the past week. Repeat BP: 129/85, POX: 99% on RA, RR: 18 Pt. evaluated by crisis who spoke with Dr. Ramos and arrangements made for admission. Disposition - Clinical Impression Clinical Impression: Major depressive disorder - Patient ED Disposition Is Patient to be Admitted: Yes - Disposition Disposition Time: 17:59 Condition: STABLE
[2016-10-05 13:44] LABS: BASO # 0.1 K/uL (0.0-0.2); BASO % 0.9 % (0.0-2.0); EOS # 0.1 K/uL (0.0-0.7); EOS % 1.1 % (0.0-4.0); HEMOGLOBIN 12.6 g/dL (12.0-16.0); LYMPH # 1.4 K/uL (1.0-4.3); LYMPH % 24.3 % (20.0-40.0); MEAN CELL VOLUME 82.6 fl (81.0-99.0); MEAN CORPUSCULAR HEMOGLOBIN 27.2 pg (27.0-31.0); MEAN CORPUSCULAR HGB CONC 32.9 g/dL (33.0-37.0); MEAN PLATELET VOLUME 8.9 fl (7.2-11.7); MONO # 0.4 K/uL (0.0-0.8); NEUT % 66.7 % (50.0-75.0); NRBC % 0.1 % (0.0-0.0); RBC 4.64 Mil/uL (3.80-5.20); RED CELL DISTRIBUTION WIDTH 13.9 % (11.5-14.5)
[2016-10-05 13:49] LABS: SQUAMOUS EPITHIAL < 1 /hpf (0-5); URINE BILIRUBIN NEGATIVE (NEGATIVE); URINE BLOOD SMALL (NEGATIVE); URINE CLARITY CLEAR (Clear); URINE COLOR COLORLESS (YELLOW); URINE GLUCOSE (UA) NEG (Normal); URINE LEUKOCYTE ESTERASE NEG Leu/uL (Negative); URINE NITRATE NEGATIVE (NEGATIVE); URINE PROTEIN NEGATIVE (NEGATIVE); URINE UROBILINOGEN 0.2-1.0 mg/dL (0.2-1.0)
[2016-10-05 13:56] LABS: ALB/GLOB RATIO 1.4 (1.0-2.1); ALBUMIN 4.7 g/dL (3.5-5.0); ALT/SGPT 42 U/L (9-52); AST/SGOT 32 U/L (14-36); BLOOD UREA NITROGEN 8 mg/dl (7-17); CALCIUM 9.2 mg/dL (8.4-10.2); GFR AFRICAN-AMERICAN > 60; GFR NON-AFRICAN AMERICAN > 60
[2016-10-05 14:03] LABS: BARBITURATES, UR NEGATIVE (NEGATIVE); BENZODIAZEPINES, UR NEGATIVE (NEGATIVE); OPIATES, UR NEGATIVE (NEGATIVE); PHENCYCLIDINE, UR NEGATIVE (NEGATIVE)
--- NOTE | 2016-10-05 15:55 | RAD ---
HISTORY: chest pain, clearance COMPARISON: 09/28/2016 FINDINGS: LUNGS: The vague opacity in the left mid to lower lung zone this consistent with the prior CT chest mention of a small calcified granuloma here at 8 mm. The tiny 1 to 2 mm opacities in the right mid to lower lungs are consistent with tiny granulomas as well No interval consolidation. PLEURA: No significant pleural effusion identified, no pneumothorax apparent. CARDIOVASCULAR: Normal. OSSEOUS STRUCTURES: No significant abnormalities. VISUALIZED UPPER ABDOMEN: Normal. OTHER FINDINGS: None. IMPRESSION: Granulomas as above. No interval pathology seen
[2016-10-05 19:49] VITALS: O2SAT 100
[2016-10-05] MEDS ORDERED: DiphenhydrAMINE 50 mg/ml Inj IM PRN (20:18)
[2016-10-05] MEDS ORDERED: Alum-Mag Hydrox-Simethicone Susp (30 mL) PO PRN (20:18)
--- NOTE | 2016-10-05 21:25 | CP.PCM.CON ---
History of Present Illness - History of Present Illness History of Present Illness: Attending: Dr Ramos PCP: Not on staff Reason for Consult: Management of body aches Chief complaint: Psychiatric Evaluation HPI: 51 years old female, non compliant with medications, has hx of Depression, Anxiety, last admitted 09/27/16 with a Code Stroke called in ED. The CT head and The MRI head were both within normal limits and she was diagnosed with Transient Global Amnesia and Paresthesias on that visit. She is now brought to the ED by the Police because she was found walking the neighborhood barefooted and talking to herself. PMH: Anxiety; major Depression; Suicide ideation; Migraine; Paresthesias; Transient global Amnesia. PSH: No surgical History SH: Never Smoked; No alcohol ingestion; No illegal drug use; Live with daughter ; Unemployed; Studying to Massage therapy FH: HTN Allergies: NKDA Seasonal Allergies Review of Systems - Constitutional Constitutional: Headache. absent: Anorexia, Chills, Fatigue, Fever - EENT Eyes: Requires Corrective Lenses. absent: Diplopia, Floaters, Photophobia, Sees Flashes Ears: absent: Decreased Hearing, Ear Pain, Tinnitus, Dizziness Nose/Mouth/Throat: absent: Epistaxis, Nasal Congestion, Nasal Discharge, Sinus Pain, Sinus Pressure - Cardiovascular Cardiovascular: absent: Chest Pain, Dyspnea, Edema - Respiratory Respiratory: absent: Cough, Dyspnea, Wheezing, Chest Congestion - Gastrointestinal Gastrointestinal: Abdominal Pain, Bloating, Constipation. absent: Diarrhea, Nausea, Vomiting - Genitourinary Genitourinary: absent: Dysuria, Flank Pain, Hematuria, Urinary Frequency - Musculoskeletal Musculoskeletal: Myalgias. absent: Arthralgias, Muscle Weakness - Integumentary Integumentary: Swelling. absent: Pruritus, Rash, Skin Ulcer, Sores, Striae - Neurological Neurological: Headaches, Memory Loss, Paresthesias. absent: Confusion, Focal Weakness Additional comments: presyncope - Psychiatric Psychiatric: Anxiety, Depression, Suicidal Ideation. absent: Panic Attacks - Endocrine Endocrine: absent: Palpitations, Polydipsia, Polyphagia, Polyuria - Hematologic/Lymphatic Hematologic: absent: Easy Bleeding, Easy Bruising Past Patient History - Past Medical History & Family History Past Medical History?: Yes - Past Social History Smoking Status: Never Smoked Chewing Tobacco Use: Yes Alcohol: None Drugs: Denies Home Situation {Lives}: With Family - CARDIAC Hx Cardiac Disorders: No Hx Hypertension: No - PULMONARY Hx Respiratory Disorders: No - NEUROLOGICAL Hx Migraine: Yes Hx Seizures: No - HEENT Hx HEENT Problems: No - RENAL Hx Chronic Kidney Disease: No Hx Kidney Stones: No - ENDOCRINE/METABOLIC Hx Hyperthyroidism: No Hx Hypothyroidism: No - HEMATOLOGICAL/ONCOLOGICAL Hx Human Immunodeficiency Virus (HIV): No - INTEGUMENTARY Hx Dermatological Problems: No - MUSCULOSKELETAL/RHEUMATOLOGICAL Hx Musculoskeletal Disorders: No - GASTROINTESTINAL Hx Gastrointestinal Disorders: No - GENITOURINARY/GYNECOLOGICAL Hx Sexually Transmitted Disorders: No - PSYCHIATRIC Hx Depression: Yes - SURGICAL HISTORY Hx Surgeries: No - ANESTHESIA Hx Anesthesia: No Meds Allergies/Adverse Reactions: Allergies Allergy/AdvReac Type Severity Reaction Status Date / Time seasonal Allergy Mild RASH Uncoded 09/26/16 02:37 - Medications Medications: Current Medications Acetaminophen (Tylenol 325mg Tab) 650 mg PO Q4 PRN PRN Reason: Pain, moderate (4-7) Al Hydrox/Mg Hydrox/Simethicone (Maalox Plus 30 Ml) 30 ml PO Q4 PRN PRN Reason: Dyspepsia Aspirin (Ecotrin) 325 mg PO DAILY [facility] Atorvastatin Calcium (Lipitor) 40 mg PO DAILY [facility] Cyanocobalamin (Vitamin B12 1000 Mcg Tab) 1,000 mcg PO DAILY [facility] Diphenhydramine HCl (Benadryl) 50 mg IM Q6 PRN PRN Reason: Extrapyramidal S/S Unable PO Diphenhydramine HCl (Benadryl) 50 mg PO Q6 PRN PRN Reason: Extrapyramidal Symptoms Diphenhydramine HCl (Benadryl) 50 mg PO HS PRN PRN Reason: Sleep Haloperidol (Haldol) 5 mg PO Q4 PRN PRN Reason: Agitation Haloperidol Lactate (Haldol) 5 mg IM Q4 PRN PRN Reason: Agitation, Unable to Take PO Lorazepam (Ativan) 2 mg IM Q4 PRN PRN Reason: Anxiety/Agitation,Unable PO Lorazepam (Ativan) 2 mg PO Q4 PRN PRN Reason: Anxiety/Agitation Magnesium Hydroxide (Milk Of Magnesia) 30 ml PO HS PRN PRN Reason: Constipation Physical Exam - Constitutional Appears: No Acute Distress - Head Exam Head Exam: ATRAUMATIC, NORMAL INSPECTION, NORMOCEPHALIC - Eye Exam Eye Exam: EOMI, Normal appearance Pupil Exam: NORMAL ACCOMODATION, PERRL - ENT Exam ENT Exam: Mucous Membranes Moist, Normal Exam, Normal External Ear Exam, Normal Oropharynx - Neck Exam Neck exam: Positive for: Full Rom, Normal Inspection. Negative for: Lymphadenopathy, Tenderness - Respiratory Exam Respiratory Exam: Clear to Auscultation Bilateral. absent: Rales, Rhonchi, Wheezes - Cardiovascular Exam Cardiovascular Exam: REGULAR RHYTHM, RRR, +S1, +S2. absent: Gallop, JVD - GI/Abdominal Exam Additional comments: Full, Soft, Tympanic on palpation, no viceromegaleas. - Rectal Exam Rectal Exam: Deferred - Extremities Exam Extremities exam: Positive for: full ROM, normal inspection, tenderness. Negative for: calf tenderness Additional comments: both lower legs distal 1/3 with pain on palpation. no edemas. - Back Exam Back exam: NORMAL INSPECTION. absent: CVA tenderness (L), CVA tenderness (R) - Neurological Exam Neurological exam: Alert, CN II-XII Intact, Oriented x3, Reflexes Normal - Psychiatric Exam Psychiatric exam: Normal Affect, Normal Mood - Skin Skin Exam: Dry, Intact, Normal Color, Warm Results - Vital Signs Recent Vital Signs: Last Vital Signs Temp 98.5 F 10/05/16 19:38 Pulse 81 10/05/16 19:49 Resp 16 10/05/16 19:38 BP 138/87 10/05/16 19:38 Pulse Ox 100 10/05/16 19:49 - Labs Result Diagrams: 10/05/16 13:30 10/05/16 13:30 - EKG Data EKG comments: NSR 81/min - Imaging and Cardiology Chest x-ray Status: Image reviewed by me Additional comment: No infiltrate Assessment & Plan - Assessment and Plan (Free Text) Assessment: #. Major depression Disorder #. Anxiety #. Migraine #. Dyspepsia #. Musculo-skeletal leg pains Plan: 51 years old female, non compliant with medications, has hx of Depression, Anxiety, last admitted 09/27/16 with a Code Stroke called in ED. The CT head and The MRI head normal, diagnosed with Transient Global Amnesia and Paresthesias on that visit. She is now brought to the ED by the Police because she was found walking the neighborhood barefooted and talking to herself. #. Major depression Disorder #. Anxiety - Psychiatric Management #. Migraine - Tylenol for headaches #. Dyspepsia - Pepcid 20mg PO daily #. Musculo-skeletal leg pains - Tylenol - Date & Time Date: 10/05/16 Time: 21:25
[2016-10-06 09:14] LABS: T4 5.91 ug/dl (5.5-11.0)
[2016-10-06] MEDS: Aspirin 325 mg EC Tablets PO SCH (09:51)
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
--- NOTE | 2016-10-07 00:04 | CARD ---
APPROVED REPORT EKG Measurement Heart [id number] <Conclusion> Normal sinus rhythm Normal ECG
[2016-10-07] MEDS: Aspirin 325 mg EC Tablets PO SCH (09:41)
[2016-10-07] MEDS: Omega-3-Acid Ethyl Esters 1 GM Cap PO SCH (09:41)
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
[2016-10-07] MEDS: Magnesium Hydroxide Susp 30 ml UD PO PRN (22:59)
[2016-10-08] MEDS: Aspirin 325 mg EC Tablets PO SCH (08:52)
[2016-10-08] MEDS: Omega-3-Acid Ethyl Esters 1 GM Cap PO SCH (08:53)
--- NOTE | 2016-10-08 11:18 | PCM.PYCHPN ---
Psychiatric Progress Note - Psychiatric Progress Note Patient seen today, length of contact: Patient evaluated, chart reviewed, case discussed with team Patient Chief Complaint: "I'm still hearing voices" Problems Identified/Issues Discussed: Patient reports continued depression and was tearful on interview. She discussed her pending divorce. She denies active ideation to harm herself and said her daughters were her reason to live. He reports that she continues to have intermittent AH saying "look for your freedom" and "you can't do what you did before" (referring to past suicide attempts). We discussed increasing the seroquel to 200 mg PO HS. r/b/se reviewed. Medication Change: Yes (Increase Seroquel) Medical Record Reviewed: Yes Mental Status Examination - Cognitive Function Orientation: Person, Place, Situation, Time Memory: Intact Attention: WNL Concentration: WNL Association: Loose Fund of Knowledge: WNL Decription of patient's judgement and insights: Fair I/J - Mood Mood: Depressed, Anxious - Affect Affect: Constricted, Depressed, Other (Tearful) - Speech Speech: Appropriate - Formal Thought Process Formal Thought Process: Hallucinations, Loosening of associations, Circumstantial Psychotic Thoughts and Behaviors: +Intermittent AH - Suicidal Ideation Suicidal Ideation: No - Homicidal Ideation Homicidal Ideation: No Goal/Treatment Plan - Goal/Treatment Plan Need for Continued Stay: Remain at risks for inpatient hospitalization, Severe depression anxiety Progress Toward Problem(s) and Goals/Treatment Plan: Mdd with psychosis Continue Celexa 10 mg PO Daily Increase Seroquel to 200 mg PO HS Encourage participation in groups Individual therapy Disposition planning Estimated Date of D/C: 10/14/16
[2016-10-08] MEDS: Magnesium Hydroxide Susp 30 ml UD PO PRN (21:52)
[2016-10-09] MEDS: Omega-3-Acid Ethyl Esters 1 GM Cap PO SCH (09:40)
--- NOTE | 2016-10-09 10:56 | PCM.PYCHPN ---
Psychiatric Progress Note - Psychiatric Progress Note Patient seen today, length of contact: Patient evaluated, chart reviewed, case discussed with team Patient Chief Complaint: "I feel sleepy" Problems Identified/Issues Discussed: Patient reports that her mood is starting to improve. She reports continued auditory hallucinations, which she last heard last night. She reports that she feels tired this morning and thinks it could be due to the Seroquel. She was not agreeable to further increasing the dosage at this time due to concerns of oversedatino. No SI/HI/paranoia. Medication Change: No Medical Record Reviewed: Yes Mental Status Examination - Cognitive Function Orientation: Person, Place, Situation, Time Memory: Intact Attention: WNL Concentration: WNL Association: Loose Fund of Knowledge: WNL Decription of patient's judgement and insights: Fair I/J - Mood Mood: Depressed, Anxious - Affect Affect: Depressed - Speech Speech: Appropriate - Formal Thought Process Formal Thought Process: Hallucinations, Loosening of associations, Circumstantial Psychotic Thoughts and Behaviors: +Intermittent AH - Suicidal Ideation Suicidal Ideation: No - Homicidal Ideation Homicidal Ideation: No Goal/Treatment Plan - Goal/Treatment Plan Need for Continued Stay: Remain at risks for inpatient hospitalization, Severe depression anxiety Progress Toward Problem(s) and Goals/Treatment Plan: MDD w/ psychosis; patient continues to report depressed mood and auditory hallucinations. Continue Celexa 10 mg PO Daily Continue Seroquel 200 mg PO HS Encourage participation in groups Individual therapy Disposition planning Estimated Date of D/C: 10/14/16
[2016-10-09 15:26] LABS: BASO % 0.5 % (0.0-2.0); EOS # 0.2 K/uL (0.0-0.7); EOS % 2.8 % (0.0-4.0); HEMOGLOBIN 12.2 g/dL (12.0-16.0); LYMPH # 1.8 K/uL (1.0-4.3); LYMPH % 28.2 % (20.0-40.0); MEAN CELL VOLUME 82.2 fl (81.0-99.0); MEAN CORPUSCULAR HEMOGLOBIN 27.4 pg (27.0-31.0); MEAN CORPUSCULAR HGB CONC 33.4 g/dL (33.0-37.0); MEAN PLATELET VOLUME 8.8 fl (7.2-11.7); MONO # 0.5 K/uL (0.0-0.8); MONO % 7.1 % (0.0-10.0); NEUT # 3.9 K/uL (1.8-7.0); NEUT % 61.4 % (50.0-75.0); NRBC % 0.1 % (0.0-0.0); RBC 4.43 Mil/uL (3.80-5.20); RED CELL DISTRIBUTION WIDTH 13.9 % (11.5-14.5); WHITE BLOOD COUNT 6.4 K/uL (4.8-10.8)
[2016-10-09 15:34] LABS: BLOOD UREA NITROGEN 13 mg/dl (7-17); CALCIUM 8.6 mg/dL (8.4-10.2); GFR AFRICAN-AMERICAN > 60; GFR NON-AFRICAN AMERICAN 59
[2016-10-09] MEDS: Aspirin 325 mg EC Tablets PO SCH (17:45)
[2016-10-09] MEDS: Magnesium Hydroxide Susp 30 ml UD PO PRN (22:49)
[2016-10-10] MEDS: Aspirin 325 mg EC Tablets PO SCH (08:54)
[2016-10-10] MEDS: Omega-3-Acid Ethyl Esters 1 GM Cap PO SCH (08:54)
--- NOTE | 2016-10-10 12:42 | PCM.PYCHPN ---
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 she pacing the halls. she interacts at times with peers, but she seems disorganized in her speech and behavior. she is willing to take an increase in the seroquel. no agitation. no aggression. no reports of side effects. Medical Problems: increased triglycerides- dr knott following Diagnostic Results: qtc 432 Medication Change: No Medical Record Reviewed: Yes Mental Status Examination - Cognitive Function Orientation: Person, Place, Situation, Time Memory: Intact Attention: WNL Concentration: WNL Association: Loose Fund of Knowledge: WNL - Mood Mood: Depressed, Anxious - Affect Affect: Depressed - Speech Speech: Appropriate Additional comments: disorganized - Formal Thought Process Formal Thought Process: Loosening of associations, Circumstantial - Suicidal Ideation Suicidal Ideation: No - Homicidal Ideation Homicidal Ideation: No Goal/Treatment Plan - Goal/Treatment Plan Need for Continued Stay: Remain at risks for inpatient hospitalization, Severe depression anxiety Progress Toward Problem(s) and Goals/Treatment Plan: mdd with psychosis will continue with current treatment increase seroquel up to 250mg tonight encourage participation in groups disposition planning Estimated Date of D/C: 10/14/16
[2016-10-11] MEDS: Aspirin 325 mg EC Tablets PO SCH (09:08)
[2016-10-11] MEDS: Omega-3-Acid Ethyl Esters 1 GM Cap PO SCH (09:08)
--- NOTE | 2016-10-11 11:20 | PCM.PYCHPN ---
Psychiatric Progress Note - Psychiatric Progress Note Patient seen today, length of contact: discussed with team Patient Chief Complaint: i am worried about my pets Problems Identified/Issues Discussed: pt with poor sleep. she is paranoid, anxious and with disorganized thoughts. her mood is labile. she is suspected to be cheeking medications. she asks to leave, but is also agreeing that she needs help. she states she will allow "any medication changes you suggest." Medical Problems: increased triglycerides- dr knott following Diagnostic Results: qtc 432 Medication Change: Yes (dc seroquel and start depakote/zyprexa) Medical Record Reviewed: Yes Mental Status Examination - Cognitive Function Orientation: Person, Place, Situation, Time Memory: Intact Attention: WNL Concentration: WNL Association: Loose Fund of Knowledge: WNL Decription of patient's judgement and insights: superficial insight - Mood Mood: Depressed, Anxious, Other (labile mood) - Affect Affect: Other (labile) - Speech Speech: Appropriate - Formal Thought Process Formal Thought Process: Paranoia, Loosening of associations, Circumstantial Psychotic Thoughts and Behaviors: disorganized thoughts, speech and behavior - Suicidal Ideation Suicidal Ideation: No - Homicidal Ideation Homicidal Ideation: No Goal/Treatment Plan - Goal/Treatment Plan Need for Continued Stay: Remain at risks for inpatient hospitalization, Severe depression anxiety Progress Toward Problem(s) and Goals/Treatment Plan: mdd with psychosis will continue with current treatment dc seroquel and start depakote to target mood and zyprexa to target psychosis- liquid and dissolvable forms used as pt is suspected of cheeking meds encourage participation in groups disposition planning Estimated Date of D/C: 10/14/16
[2016-10-11] MEDS: Valproic Acid 250 mg/5 ml UD Cup PO SCH ×2 (11:27→21:48)
[2016-10-11] MEDS: OLANZapine 5 mg Disintegrating Tab PO SCH ×2 (11:27→21:48)
[2016-10-12] MEDS: Valproic Acid 250 mg/5 ml UD Cup PO SCH (08:55)
[2016-10-12] MEDS: Omega-3-Acid Ethyl Esters 1 GM Cap PO SCH (08:55)
[2016-10-12] MEDS: OLANZapine 5 mg Disintegrating Tab PO SCH ×2 (08:59→21:40)
[2016-10-12] MEDS: Aspirin 325 mg EC Tablets PO SCH (08:59)
--- NOTE | 2016-10-12 18:00 | PCM.PYCHPN ---
Psychiatric Progress Note - Psychiatric Progress Note Patient seen today, length of contact: chart reviewed case discussed with team 35min spent Patient Chief Complaint: there is nothing wrong with me, i don't have any illnesses, does not have mental illness, has submitted a 48 hour notice and continues to maintain in place after 48hr notice was reviewed with pt by paragu[place] speaking staff. per notes pt appears to have called family on several occassions and reportedly made some threats and family expressed concern verbally to logistics team lead. rx adherent with redirection Medical Problems: per chart Diagnostic Results: per psychiatry per medicine per nursing per social work per recreational therapy Medication Change: No Medical Record Reviewed: Yes Mental Status Examination - Cognitive Function Orientation: Person, Place, Situation, Time Memory: Intact Attention: WNL Concentration: WNL Association: Loose Fund of Knowledge: WNL Decription of patient's judgement and insights: impaired - Mood Mood: Depressed, Anxious, Other (labile mood) - Affect Affect: Other (labile) - Speech Speech: Soft - Formal Thought Process Formal Thought Process: Paranoia, Loosening of associations, Circumstantial - Suicidal Ideation Suicidal Ideation: No - Homicidal Ideation Homicidal Ideation: No Goal/Treatment Plan - Goal/Treatment Plan Need for Continued Stay: Remain at risks for inpatient hospitalization, Severe depression anxiety Progress Toward Problem(s) and Goals/Treatment Plan: inpt milieu vital signs and and clinical observation per protocol and per clinical staus 48 hour notice was reviewed and clarified with pt-pt does not wish to remain in hospital, does not believe she has any mental illness, exhibits paranoia and per family reportedly has made threats towards family-family has notified transition social worker has concerns about safety of pt 's status-will have pt screened for involuntary commitment. Estimated Date of D/C: 10/14/16 - Smoking Cessation Smoking Cessation Initiated: No Reason for not providing: deferred
[2016-10-13 07:14] LABS: ALB/GLOB RATIO 1.5 (1.0-2.1); ALBUMIN 4.3 g/dL (3.5-5.0); BILIRUBIN,DIRECT 0.1 mg/ml (0.0-0.4)
[2016-10-13] MEDS: Omega-3-Acid Ethyl Esters 1 GM Cap PO SCH (08:28)
[2016-10-13] MEDS: OLANZapine 5 mg Disintegrating Tab PO SCH ×2 (08:28→22:15)
[2016-10-13] MEDS: Valproic Acid 250 mg/5 ml UD Cup PO SCH ×2 (08:28→22:13)
[2016-10-13] MEDS: Aspirin 325 mg EC Tablets PO SCH (08:28)
--- NOTE | 2016-10-13 10:44 | PCM.PYCHPN ---
Psychiatric Progress Note - Psychiatric Progress Note Patient seen today, length of contact: discussed with team Patient Chief Complaint: when can i leave here? Problems Identified/Issues Discussed: pt asking for discharge. she is now aware that she will be transfered to [facility] [place], [place]. she is anxious about this. she has times when she does agree she needs help. she is taking medications and going to groups. family has been called with concerns with pt's behaviors at home and threatening behavior. Medical Problems: increased triglycerides- dr knott following Diagnostic Results: qtc 432 Medication Change: No Medical Record Reviewed: Yes Mental Status Examination - Cognitive Function Orientation: Person, Place, Situation, Time Memory: Intact Attention: WNL Concentration: WNL Association: Loose Fund of Knowledge: WNL Decription of patient's judgement and insights: variable insight - Mood Mood: Depressed, Anxious, Other (labile mood) - Affect Affect: Other (labile) - Speech Speech: Soft - Formal Thought Process Formal Thought Process: Paranoia, Loosening of associations, Circumstantial - Suicidal Ideation Suicidal Ideation: No - Homicidal Ideation Homicidal Ideation: No Goal/Treatment Plan - Goal/Treatment Plan Need for Continued Stay: Remain at risks for inpatient hospitalization, Severe depression anxiety Progress Toward Problem(s) and Goals/Treatment Plan: 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
[2016-10-14] MEDS: OLANZapine 5 mg Disintegrating Tab PO SCH ×2 (09:55→21:15)
[2016-10-14] MEDS: Omega-3-Acid Ethyl Esters 1 GM Cap PO SCH (09:55)
[2016-10-14] MEDS: Aspirin 325 mg EC Tablets PO SCH (09:55)
[2016-10-14] MEDS: Valproic Acid 250 mg/5 ml UD Cup PO SCH ×2 (10:01→21:15)
--- NOTE | 2016-10-14 11:17 | PCM.PYCHPN ---
Psychiatric Progress Note - Psychiatric Progress Note Patient seen today, length of contact: discussed with team Patient Chief Complaint: can i leave soon Problems Identified/Issues Discussed: pt anxious about going to [facility] [place]. she is with disorganized thoughts, pacing the halls and has started working on a giant collage in her room. she is stating she feels more calm, but is refusing to allow an increase in her medications. periods of being almost elated and telling treatment providers that she "loves you" Medical Problems: increased triglycerides- dr knott following Diagnostic Results: qtc 432 Medication Change: No (pt refusing increase in meds) Medical Record Reviewed: Yes Mental Status Examination - Cognitive Function Orientation: Person, Place, Situation, Time Memory: Intact Attention: WNL Concentration: WNL Association: Loose Fund of Knowledge: WNL Decription of patient's judgement and insights: some insight - Mood Mood: Depressed, Anxious, Euphoric, Other (labile mood) - Affect Affect: Other (labile) - Speech Speech: Loud - Formal Thought Process Formal Thought Process: Delusions, Paranoia, Loosening of associations, Circumstantial - Suicidal Ideation Suicidal Ideation: No - Homicidal Ideation Homicidal Ideation: No Goal/Treatment Plan - Goal/Treatment Plan Need for Continued Stay: Remain at risks for inpatient hospitalization, Severe depression anxiety Progress Toward Problem(s) and Goals/Treatment Plan: 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
[2016-10-14 17:58] VITALS: BP 141/97; PULSE 92; RESP 20; TEMP 98.4
--- NOTE | 2016-11-03 08:53 | PCM.PYCHDC ---
Mental Status Examination - Mental Status Examination Orientation: Person, Place, Situation, Time Memory: Intact Mood: Anxious Affect: Broad Speech: Appropriate Attention: Poor Concentration: Poor Association: Loose Fund of Knowledge: WNL Formal Thought Process: Delusions, Loosening of associations Description of patient's judgement and insight: some insight Psychotic Thoughts and Behaviors: disorganized thoughts, speech and behavior Suicidal Ideation: No Current Homicidal Ideation?: No Discharge Summary - Discharge Note Reason for Hospitalization: bizarre behaviors at home and in the community. Psychiatric History (includes Medical, Family, Personal Hx): history of schizoaffective disorder Consultations:: List each consultation separately and include: 1. Reason for request. 2. Findings. 3. Follow-up Consultations: seen by the hospitalist Summary of Hospital Course include:: 1. Description of specific treatment plan utilized for patients during their course of treatmen. 2. Summarize the time- course for resolution of acute symptoms and/or regressed behaviors. 3. Describe issues identified and worked on during hospitalization. 4. Describe medication utilized. 5. Describe medical problems identified and treated. 6. Reassessment of suicide risk Summary of Hospital Course: 51 yo female with 2 previous psychiatric admissions. apparently mobile outreach was called, but no documentation of who called or why they were called. pt has been with some anxious, dramatic behaviors over the last few weeks. she was admitted briefly for syncope/stroke like symptoms that quickly resolved. pt states she was just out in her yard and not causing any trouble when the mobile outreach came. she is reporting that her of over 20 years and she are and there is an upcoming court date. i have seen pt in the medical floor a week ago with her daughters who confirmed this. per family pt has tried to get a restraining order against . pt is agreeing she is anxious. she does report poor sleep. she is willing to only allow small adjustments to medications. pt was admitted to [facility] and oriented to the unit. pt placed on routine safety protocols. pt was started on medications to target her mood/psychosis, but did not have an optimal response. she remained grossly disorganized and psychotic. she demanded discharge and was screened by [facility] [place] and found to meet the criteria for involuntary hospitalization. she was transfered to [facility] [place] for further treatment and observation. - Final Diagnosis (DSM 5) Condition upon Discharge: STABLE DSM 5: schizoaffective disorder, bipolar type Disposition: DISCHARGE TO PSYCH HOSPITAL Follow-up Treatment Plan: follow up with treatment team at [facility] [place] - Smoking Cessation Smoking Cessation Medication prescribed: No - Antipsychotic Medications Pt discharged on 2 or more routine antipsychotic medications: No
== END 2016-10-14 22:00 | DRG 430 ==
LOC: H.ER 11:22 → H.ERHOLD 17:59 → H.PSYCH 20:04
PROVIDERS: ADMIT Psychiatry & Neurology Psychiatry; ATTEND Psychiatry & Neurology Psychiatry
PROC: GZHZZZZ Group Psychotherapy (ICD-10-PCS; principal; 2016-10-05)
PROC: GZ56ZZZ Individual Psychotherapy, Supportive (ICD-10-PCS; 2016-10-05)
DX: F32.3 Major depressive disorder, single episode, severe with psychotic features (principal); Z91.14 Patient's other noncompliance with medication regimen; E78.1 Pure hyperglyceridemia; F41.9 Anxiety disorder, unspecified; G43.909 Migraine, unspecified, not intractable, without status migrainosus; R10.13 Epigastric pain; M79.606 Pain in leg, unspecified

== ENCOUNTER 2016-10-19 02:55 | Emergency (ER) | payer MEDICAID ==
[2016-10-19 02:56] VITALS: BMI 32.9
[2016-10-19 03:01] VITALS: BP 163/92; PULSE 97; RESP 16; TEMP 99.6; O2SAT 98
--- NOTE | 2016-10-19 04:06 | ED PDOC ---
HPI: Psych/Substance Abuse Time Seen by Provider: 10/19/16 03:15 Chief Complaint (Nursing): Anxiety Chief Complaint (Provider): Anxiety History Per: Patient History/Exam Limitations: no limitations Current Symptoms Are (Timing): Better Suicide/Self Injury Attempted (Context): None Modifying Factor(s): None Additional History Per: Prior Records Additional Complaint(s): 51 year old female presents to ED with complaints of anxiety and has a past history of schizophrenia, anxiety, and depression. Patient confirms that her anxiety is resolving upon arrival to ED. Patient states she was admitted here in the past and remembers being a code stroke patient and has anxiety because of that experience. Chart review shows patient did not have a CVA and was cleared neurologically by Dr. Chavarria, who confirmed patient was experiencing psychosomatic symptoms. Patient currently is feeling better, denies suicidal/ homicidal ideation, and wants to go home. [facility] Past Medical History Reviewed: Historical Data, Nursing Documentation, Vital Signs Vital Signs: Last Vital Signs Temp 99.6 F 10/19/16 02:59 Pulse 97 H 10/19/16 02:59 Resp 16 10/19/16 02:59 BP 163/92 H 10/19/16 02:59 Pulse Ox 98 10/19/16 02:59 - Medical History PMH: Bipolar Disorder, Depression, Migraine Denies: Diabetes, Hepatitis, HIV, HTN, Hyperthyroidism, Hypothyroidism, Kidney Stones, Chronic Kidney Disease, Seizures, Sexually Transmitted Disease - Family History Family History: States: Unknown Family Hx, Hypertension - Living Arrangements Living Arrangements: With Family - Immunization History Hx Tetanus Toxoid Vaccination: No Hx Influenza Vaccination: No Hx Pneumococcal Vaccination: No - Home Medications Home Medications: Ambulatory Orders Medication Instructions Recorded Ibuprofen [Motrin Tab] 1 tab PO Q8 PRN #30 tab 09/17/16 QUEtiapine [SEROquel] 75 mg PO HS 09/17/16 Atorvastatin [Lipitor] 40 mg PO DAILY #14 tab 09/28/16 Gabapentin [Neurontin] 300 mg PO HS #30 cap 09/28/16 Aspirin [Ecotrin] 325 mg PO DAILY 10/05/16 Citalopram Hydrobromide [Celexa] 10 mg PO DAILY 10/05/16 Cyanocobalamin [Vitamin B12 1000 1 tab PO DAILY 10/05/16 mcg Tab] Glucosa Linder 2Kcl/Chondroitin Linder 1 cap PO DAILY 10/05/16 [Glucosamine & Chondroitin Cap] Poplar-3 Fatty Acids [Poplar-3] 1,000 mg PO DAILY 10/05/16 Turmeric Root Extract [Turmeric] 500 mg PO DAILY 10/05/16 - Allergies Allergies/Adverse Reactions: Allergies Allergy/AdvReac Type Severity Reaction Status Date / Time seasonal Allergy Mild RASH Uncoded 09/26/16 02:37 Review of Systems ROS Statement: Except As Marked, All Systems Reviewed And Found Negative Psych: Positive for: Anxiety. Negative for: Suicidal ideation Physical Exam - Reviewed Nursing Documentation Reviewed: Yes Vital Signs Reviewed: Yes - Physical Exam Appears: Positive for: Non-toxic, No Acute Distress Head Exam: Positive for: ATRAUMATIC Skin: Positive for: Normal Color, Warm, Dry Eye Exam: Positive for: Normal appearance ENT: Positive for: Normal ENT Inspection Cardiovascular/Chest: Positive for: Regular Rate, Rhythm. Negative for: Murmur Respiratory: Positive for: Normal Breath Sounds. Negative for: Respiratory Distress Gastrointestinal/Abdominal: Positive for: Normal Exam, Soft. Negative for: Tenderness Back: Positive for: Normal Inspection Extremity: Positive for: Normal ROM. Negative for: Deformity Neurologic/Psych: Positive for: Alert, Oriented. Negative for: Motor/Sensory Deficits - ECG O2 Sat by Pulse Oximetry: 98 (RA) Pulse Ox Interpretation: Normal Medical Decision Making Medical Decision Makin Initial impression: anxiety Initial plan: Spoke with daughter, who confirms that patient is sounding more like herself. Believes patient is fit to be discharged. 0340 Patient is medically stable and ready for discharge. Counseling has been provided and patient is in agreement. Return if symptoms persist or acutely worsen. Scribe Attestation: Documented by Kerry Sales acting as a scribe for Rey Mcbride MD. Scribe Attestation: All medical record entries made by the Scribe were at my direction and personally dictated by me. I have reviewed the chart and agree that the record accurately reflects my personal performance of the history, physical exam, medical decision making, and the department course for this patient. I have also personally directed, reviewed, and agree with the discharge instructions and disposition. Disposition - Clinical Impression Clinical Impression: Anxiety attack - Disposition Referrals: [facility] [Outside] Disposition: Routine/Home Disposition Time: 03:40 Condition: STABLE Instructions: Anxiety (ED) Print Language: AMHARIC
== END 2016-10-19 04:11 | disposition home or self-care (01) ==
LOC: H.ER 02:55
DX: F41.1 Generalized anxiety disorder (principal); F20.9 Schizophrenia, unspecified; F31.9 Bipolar disorder, unspecified; Z79.82 Long term (current) use of aspirin

== ENCOUNTER 2016-10-23 11:22 | Emergency (ER) | payer MEDICAID ==
[2016-10-23 11:33] VITALS: BP 139/81; PULSE 110; RESP 18; TEMP 98.1; O2SAT 98
--- NOTE | 2016-10-23 12:08 | ED PDOC ---
HPI: Psych/Substance Abuse Time Seen by Provider: 10/23/16 11:35 Chief Complaint (Nursing): Psychiatric Evaluation Chief Complaint (Provider): Denies SI, reports depression History Per: Patient History/Exam Limitations: no limitations Onset/Duration Of Symptoms: Days Current Symptoms Are (Timing): Still Present Additional Complaint(s): Pt states she has been having a rough time at home. Pt states her is and alcoholic and has been cheating on her. PT states she has been emailing on old male friend on facebook and her daughter found out. Her daughter than called police. PT denies SI. Pt states she has history of depression but has not been suicidal for over 3 years. PT calm and cooperative in ER. Past Medical History Reviewed: Historical Data, Nursing Documentation, Vital Signs Vital Signs: Last Vital Signs Temp 98.1 F 10/23/16 11:30 Pulse 110 H 10/23/16 11:30 Resp 18 10/23/16 11:30 BP 139/81 10/23/16 11:30 Pulse Ox 98 10/23/16 11:30 - Medical History PMH: No Chronic Diseases - Surgical History Surgical History: No Surg Hx - Family History Family History: States: No Known Family Hx - Living Arrangements Living Arrangements: With Family - Social History Current smoker - smoking cessation education provided: No - Allergies Allergies/Adverse Reactions: Allergies Allergy/AdvReac Type Severity Reaction Status Date / Time No Known Allergies Allergy Verified 10/23/16 11:30 Review of Systems ROS Statement: Except As Marked, All Systems Reviewed And Found Negative Psych: Positive for: Depression. Negative for: Suicidal ideation Physical Exam - Reviewed Nursing Documentation Reviewed: Yes Vital Signs Reviewed: Yes - Physical Exam Appears: Positive for: Well, Non-toxic, No Acute Distress Head Exam: Positive for: ATRAUMATIC, NORMAL INSPECTION, NORMOCEPHALIC Skin: Positive for: Normal Color, Warm, DRY Eye Exam: Positive for: Normal appearance ENT: Positive for: Normal ENT Inspection Neck: Positive for: Normal, Painless ROM Cardiovascular/Chest: Positive for: Regular Rate, Rhythm Respiratory: Positive for: CNT, Normal Breath Sounds Gastrointestinal/Abdominal: Positive for: Normal Exam, Bowel Sounds, Soft Back: Positive for: Normal Inspection Extremity: Positive for: Normal ROM Neurologic/Psych: Positive for: Alert, Oriented, Mood/Affect - ECG O2 Sat by Pulse Oximetry: 98 Medical Decision Making Medical Decision Making: Crisis evaluation completed. Disposition - Clinical Impression Clinical Impression: Depression - Patient ED Disposition Is Patient to be Admitted: No Counseled Patient/Family Regarding: Diagnosis, Need For Followup - Disposition Referrals: [facility] [Outside] [facility] [Outside] Disposition: Routine/Home Disposition Time: 13:50 Condition: GOOD Instructions: Depression (ED)
== END 2016-10-23 14:26 | disposition home or self-care (01) ==
LOC: H.ER 11:22 → MERGE 11:22 → H.ER 14:26
DX: F32.9 Major depressive disorder, single episode, unspecified (principal); Z00.8 Encounter for other general examination